=== PATIENT | male | born 2000 | race Caucasian/White ===

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

== ENCOUNTER 2023-06-18 13:54 | Emergency (ER) | payer BC, MEDICAID ==
[~2023-06-18] VITALS: Ht 177.8 cm; Wt 79.4 kg
[2023-06-18 14:06] VITALS: BP_SYST 133; PULSE 64; RESP 16; TEMP 97; O2SAT 96
[2023-06-18 15:21] LABS: BILIRUBIN,URINE NEGATIVE (NEGATIVE); BLOOD, URINE NEGATIVE (NEGATIVE); CLARITY/URINE CLEAR (CLEAR); COLOR,URINE YELLOW (YELLOW); GLUCOSE,URINE NEGATIVE (NEGATIVE); KETONES,URINE NEGATIVE (NEGATIVE); LEUKOCYTE ESTERASE ,URINE NEGATIVE (NEGATIVE); NITRITE, URINE NEGATIVE (NEGATIVE); PH,URINE 6.5 (5.0-8.0); PROTEIN URINE NEGATIVE (NEGATIVE); UROBILINOGEN,URINE 0.2 (0.2-1.0)
[2023-06-18 16:53] VITALS: BP_SYST 133; PULSE 64; RESP 16; TEMP 97; O2SAT 96
== END 2023-06-18 16:00 | disposition home or self-care (01) ==
LOC: SED 13:54
DX: N48.89 Other specified disorders of penis (principal); Z79.899 Other long term (current) drug therapy
CPT/HCPCS: 36415; 81003; 87491; 99283